=== PATIENT | female | born 1985 | race Caucasian/White ===

== ENCOUNTER 2020-03-11 06:35 | Emergency (ER) | payer OTHER, SELFPAY ==
[~2020-03-11] VITALS: Ht 167.6 cm; Wt 115.7 kg
[2020-03-11 06:44] VITALS: BP 118/77
--- NOTE | 2020-03-11 06:52 | NUR ---
AMBULATED TO ER BED 1
--- NOTE | 2020-03-11 06:57 | NUR ---
35 Y/O FEMALE C/O FEVER X 3 DAYS;SEVERE HEARTBURN;CP UPON INSPIRATION/EXPIRATION;COUGH (PRODUCTIVE AT TIMES);RUNNY NOSE;BODY ACHES;+D/N/V ON THURSDAY ONLY; PT DENIES BEING AROUND ANYONE WHO HAS BEEN SICK; PT TOOK 1 GRAM OF TYLENOL AT 5AM WITH MINIMAL RELIEF; TEMP IN TRIAGE 100 ORAL; SKIN IS PINK/WARM/DRY; AAOX4 WITH EVEN AND STEADY GAIT; HR EVEN AND REGULAR; PT DENIES ANY SOB AT THIS TIME; PATIENT STATES PAIN OF 4/10 AT THIS TIME; VSS; PATIENT POSITIONED FOR COMFORT; HOB ELEVATED; BEDRAILS UP X2; BED DOWN AND LOCKED. PMH: PNA/ACTIVITY INDUCED ASTHMA NKA
--- NOTE | 2020-03-11 07:15 | NUR ---
DR ROMEO AT BEDSIDE EXAMINING PT
--- NOTE | 2020-03-11 07:33 | NUR ---
COVID-19 SWAB COLLECTED FROM PT.
[2020-03-11 07:47] VITALS: BP 118/77
--- NOTE | 2020-03-11 07:48 | NUR ---
Patient discharged with v/s stable. Written and verbal after care instructions given and explained. Patient alert, oriented and verbalized understanding of instructions. Ambulatory with steady gait. All questions addressed prior to discharge. ID band removed. Patient advised to follow up with PMD. Rx of PROMETHAZINE HYDROCHLORIDE/DEXTROMETHORPHAN HYDROBROMIDE 6.25MG given. Patient educated on indication of medication including possible reaction and side effects. Opportunity to ask questions provided and answered.
--- NOTE | 2020-03-13 06:53 | NUR ---
LATE ENTRY RECIEVED A POSITIVE COVID SWAB -- GIVEN TO INFECTION CONTROL.
--- NOTE | 2020-03-13 20:51 | NUR ---
PT POSITIVE FOR COVID-19. RESULTS-SENT TO INFECTION CONTROL AND HOUSE SUP
== END 2020-03-11 07:48 | disposition home or self-care (01) ==
LOC: MED 06:35 → EEVIPCON 06:35 → MED 07:48
DX: R50.9 Fever, unspecified (principal); R05 Cough; R07.9 Chest pain, unspecified; J45.909 Unspecified asthma, uncomplicated
CPT/HCPCS: 71045; 99284; Q0092; U0003